=== PATIENT | female | born 1955 ===

== ENCOUNTER 2017-08-25 19:57 | Emergency (ER) | payer OTHER ==
[2017-08-25 20:01] VITALS: BMI 43.4
[2017-08-25 20:22] VITALS: BP 145/75; PULSE 62; RESP 17; TEMP 98; O2SAT 96
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
== END 2017-08-25 22:12 | disposition home or self-care (01) ==
LOC: ED 19:57
DX: T14.8XXA Other injury of unspecified body region, initial encounter (principal); V49.9XXA Car occupant (driver) (passenger) injured in unspecified traffic accident, initial encounter; E11.9 Type 2 diabetes mellitus without complications; I10 Essential (primary) hypertension